=== PATIENT | female | born 1995 | race Caucasian/White ===

== ENCOUNTER 2016-05-10 21:02 | Emergency (ER) | payer OTHER ==
[~2016-05-10] VITALS: Ht 165.1 cm; Wt 56.0 kg
[2016-05-10 21:12] VITALS: BP 131/82; PULSE 91; RESP 18; TEMP 98.8; O2SAT 100
[2016-05-10] MEDS ORDERED: QUET200XR PO (21:18)
[2016-05-10] MEDS ORDERED: PROZ20CA11 PO (21:18)
--- NOTE | 2016-05-10 21:28 | PD ---
HPI Chief Complaint: Injury Time Seen by Provider: 21:27 Travel History International Travel<30 days: No Contact w/Intl Traveler<30days: No Traveled to known affect area: No History of Present Illness HPI 21-year-old female with a history of depression, anxiety, borderline personality disorder presents to the emergency department by EMS for evaluation of left knee injury. The patient states that she was playing indoor volleyball when she jumped to the left and her left knee somehow bent underneath her. Denies actually landing on the knee. States that she's had pain in the knee since this occurred, unable to bear weight due to the pain. She does admit to having LCL tears to bilateral knees but did not have surgery. She denies any numbness or tingling, weakness, fever, chills, nausea, vomiting. Denies , last menstrual period 1 week ago. No other complaints. PFSH Past Medical History Anxiety: Yes Depression: Yes Psychiatric: Yes (personality disorder) ?: Not Social History Tobacco Use: No Allergies-Medications (Allergen,Severity, Reaction): Uncoded Allergies: RED DYE IN COUGH SYRUP (Allergy, Intermediate, Hives, 05/10/16) Reported Meds & Prescriptions Reported Meds & Active Scripts Active Reported Prozac (Fluoxetine HCl) 20 Mg Cap 20 Mg PO DAILY Seroquel XR (Quetiapine Fumarate) 200 Mg Tab 200 Mg PO HS Review of Systems Except as stated in HPI: all other systems reviewed are Neg Physical Exam Narrative GENERAL: Well-nourished and well-developed pleasant female patient in no acute distress. SKIN: Warm and dry. HEAD: Normocephalic and atraumatic. EYES: No injection, drainage, or hyphema noted. PERRLA. EOMI. ENT: No nasal drainage noted. Oropharynx is clear. NECK: Supple and the trachea is midline. CARDIOVASCULAR: Regular rate and rhythm. RESPIRATORY: Breath sounds are equal bilaterally with no accessory muscle use, wheezing, rhonchi, or crackles. MUSCULOSKELETAL: Mild swelling to left knee with tenderness to palpation of lateral aspect of left knee. She is able to actively flex and extend the knee although range of motion is limited due to pain. Negative AP drawer sign, the joint is stable. No obvious deformities, swelling, cyanosis, or ecchymosis is present throughout the upper and lower extremities. Patient has full range of motion without any signs of neurovascular compromise. NEUROLOGICAL: Awake, alert, and oriented. Normal speech and gait. Cranial nerves are grossly intact. Data Data Last Documented VS Vital Signs Date Time Temp Pulse Resp B/P Pulse Ox O2 Delivery O2 Flow Rate FiO2 05/10/16 21:12 98.8 91 18 131/82 100 Orders Knee, Complete (4vws) (05/10/16 21:26) Acetamin-Hydrocod 325-5 Mg ([place] 5-325 (05/10/16 21:30) Splint Or Brace Apply/Monitor (05/10/16 22:34) [facility] Medical Decision Making Medical Screen Exam Complete: Yes Emergency Medical Condition: Yes Differential Diagnosis Knee sprain versus ligamentous injury versus meniscus tear versus fracture Narrative Course 21-year-old female presents to the emergency department by EMS for evaluation of left knee injury that occurred while playing volleyball. Patient is afebrile , vital signs are stable. Patient's left lower extremity is neurovascularly intact. X-ray imaging has been ordered and is pending. Patient is given Lortab 5325 milligrams orally here in the ED. X-ray of the left knee is negative for any acute abnormalities. Patient is placed in knee immobilizer. She has crutches at home that she can use for ambulation. Discussed supportive care. Advised follow-up with her PCP or an orthopedist if her symptoms persist. Patient verbalizes understanding and agreement with treatment plan. Diagnosis Primary Impression: Left knee sprain Qualified Code: S83.92XA - Sprain of left knee, unspecified ligament, initial encounter Referrals: Orthopedist Patient Instructions: General Instructions, Knee Sprain (ED) Departure Forms: School Release, Return to School Date: May 12, 2016 Tests/Procedures Additional Instructions: Knee immobilizer, crutches for ambulation. Elevate left knee. Apply ice for 20 minutes on, 20 minutes off. Take medications as prescribed with food and a full glass of water. Do not take Lortab with alcohol or while driving. Follow-up with an orthopedist if symptoms persist. Return to the ED for any acute worsening of symptoms. Med/Other Pt SpecificInfo: Prescription(s) given Scripts Naproxen 500 Mg Rne323 Mg PO BID 7 Days Ref 0 Prov:Ajay Neff MD 05/10/16 Hydrocodone-Acetaminophen (Lortab)5-325 Mg Tab1 Tab PO Q6H PRN (PAIN GREATER THAN 6) #15 TAB Ref 0 Prov:Ajay Neff MD 05/10/16 Disposition: 01 DISCHARGE HOME Condition: Stable Jerica Burt May 10, 2016 21:27
[2016-05-10] MEDS ORDERED: ACETAMINOPHEN/HYDROcodone 325 MG/5 MG TAB PO ONE (21:30)
--- NOTE | 2016-05-10 22:33 | RADRPT ---
EXAM DATE/TIME: 05/10/2016 22:09 [place] COMPARISON: No previous studies available for comparison. INDICATIONS : Left knee pain from fall. MEDICAL HISTORY : Prior tear of LCL SURGICAL HISTORY : None. ENCOUNTER: Initial ACUITY: 1 day PAIN SCORE: 8/10 LOCATION: medial knee. FINDINGS: Four view examination of the left knee demonstrates no evidence of fracture or dislocation. Bony min eralization is normal. The articular surfaces are intact. The suprapatellar soft tissues have a nor mal configuration. CONCLUSION: Unremarkable examination of the left knee. Joey Michelle Jr., MD on May 10, 2016 at 22:31 Board Certified Radiologist. This report was verified electronically.
[2016-05-10] MEDS ORDERED: NAPR500T PO (22:35)
[2016-05-10] MEDS ORDERED: HYDR-3533 PO (22:35)
== END 2016-05-10 23:04 | disposition home or self-care (01) ==
LOC: NEPB 21:02
DX: S83.92XA Sprain of unspecified site of left knee, initial encounter (principal); X58.XXXA Exposure to other specified factors, initial encounter; Y93.68 Activity, volleyball (beach) (court); Y99.8 Other external cause status
CPT/HCPCS: 73564; 99283; L1830

== ENCOUNTER → 2016-06-17 | Day surgery (SDC) | payer OTHER ==
[~2016-06-17] MED LIST: ACETAMINOPHEN/HYDROcodone 325 MG/5 MG TAB ONE; BACITRACIN IM FOR SOLN 50,000 UNIT VIAL ONE; BUPIVACAINE HCL PF 0.75% 30 ML VIAL ONE; HYDR-3533 PO; KETOROLAC TROMETHAMINE 30 MG/ML (IVP) VIAL IV PUSH ONE; LACTATED RINGER'S 1000 ML INJ 1,000 ML ONE; LIDOCAINE 1.5%/EPINEPHrine 1:200,000 PF SOLN 30 ML AMP ONE; MIDAZOLAM HCL 5 MG/5 ML VIAL ONE; NAPR500T PO; ONDANSETRON HCL 4 MG/2 ML VIAL IV PUSH ONE; PROPOFOL 200 MG/20 ML AMP IV ONE; PROZ20CA11 PO; QUET200XR PO; SODIUM CHLORIDE 0.9% 20 ML VIAL ONE; ceFAZolin 2 GM PREMIX 50 ML ONE; ceFAZolin INJ 1,000 MG VIAL ONE
--- NOTE | 2016-06-18 23:30 | MP ---
cc: CANDIDO MILLIGAN DATE OF SURGERY 06/17/2016 PREOPERATIVE DIAGNOSIS 1. Left knee anterior cruciate ligament tear. 2. Lateral meniscal tear POSTOPERATIVE DIAGNOSES 1. Left knee anterior cruciate ligament tear. 2. Lateral meniscal tear PROCEDURE 1. Left knee anterior cruciate ligament arthroscopic assisted allograft reconstruction. 2. Partial lateral meniscectomy SURGEON Dr. Julia Milligan RETAIL PRESENTATION SPECIALIST JOLEEN Duarte ANESTHESIA General with a femoral nerve block. REVIEW OF SYSTEMS Less than 50 mL. TOURNIQUET TIME Zero. JUSTIFICATION Patient is a 21-year-old female who sustained traumatic injury to her left knee resulting in a rupture of the anterior cruciate ligament. She complains of pain and instability symptoms. She was evaluated by the undersigned at the [facility]. Clinical exam as well as MRI confirmed the above-named findings. The patient was counseled as to risks, benefits and alternatives to the above named proposed surgical procedure. She did wish to proceed with surgery. PROCEDURE IN DETAIL A written consent WAS obtained. The patient identified by name, taken to the operating room and placed supine on the operating room table. General anesthesia was administered as well as 2 grams of IV Ancef. Left thigh carefully placed in well-padded leg wheat. Left lower extremity prepped and draped using isopropyl alcohol, Hibiclens solution and DuraPrep solution. After time-out was performed, a standard medial and lateral parapatellar arthroscopic portal was established. The patellofemoral joint revealed chondromalacia medial compartment was free of meniscal pathology and chondromalacia. The intercondylar notch revealed a rupture of the anterior cruciate ligament. The lateral compartment did reveal an unstable lateral meniscus tear. An arthroscopic biter followed by an arthroscopic shaver was placed into the lateral compartment for perform a partial lateral meniscectomy. The meniscal rim was probed and noted to be stable. No significant chondromalacia of the lateral compartment was noted. The shaver was used to perform a debridement of the torn anterior cruciate ligament stump. An arthroscopic bur was used to perform a notchplasty. An Arthrex tibial guide centered within the footprint of [place] ACL was placed. A guide pin was used to capture the 9.5-mm reamer bit. The tibial tunnel was retro cut 9.5 mm in diameter. Arthroscopic shaver was used to clean the soft tissue and bone and debris from within the knee joint. An Arthrex 6-mm [id number] medial portal guide was placed in the medial portal onto lateral femoral condyle. The knee was hyperflexed and a guide pin was drilled exiting the lateral femoral condyle. A low profile 9.5 mm cannulated reamer was drilled to a depth of 25 mm. The shaver was again used to clean soft tissue and bone debris from within the knee joint. On the back table, the posterior tibialis tendon allograft was thawed in antibiotic solution. Ricky Juarez, physician certified physician assistant certified, was instrumental in fashioning the graft ____ a diameter of 9.5 mm. #2 FiberWire whipstitch was placed in the proximal and distal portions of the graft and the graft was free tensioned on the back table. An Arthrex tightrope was placed in the mid portion of the graft. The sutures from the tightrope were then placed through the eyelet of a fiber link suture. The beef needle was used to shuttle the fiber link suture from the tibial tunnel exiting the femoral tunnel. This was then subsequently used to shuttle the sutures from the tightrope. The tightrope anchor was then pulled from the tibial tunnel exiting the lateral cortex of the femoral tunnel. There is excellent purchase and fixation. Subsequently, with the anchors seated on the lateral femoral condyle the graft was pulled and seated within the femoral tunnel. The graft was taken through full range of motion. No evidence of pistoning or impingement. With the leg held in near full extension, a guide wire was placed along the anterior portal of the graft. An Arthrex 9 x 28 mm bioabsorbable interference screw was used for fixation on the tibial side. An intraoperative Mimi exam was performed which was negative. The exiting graft in the tibial tunnel was removed with a 15 blade scalpel. The tibial incision was closed with 3-0 Vicryl suture and 3-0 nylon suture. The remaining incisions were closed with 3-0 nylon suture. Sterile dressing applied. The patient tolerated the procedure well. No intraoperative complications noted. Ricky Juarez, physician certified physician assistant certified, was present for entire procedure to include patient positioning and the procedure itself. The medical necessity of a physician certified physician assistant was indicated in this case due to the complexity of the procedure. He assisted with appropriate manipulation of the leg and also manipulation of the camera. He assisted with drilling of femoral and tibial tunnel and also implantation of the fixation devices and graft for purposes of reconstruction. MD ALYCE Stock/ /10:42 AM /11:09 PM
== END | disposition home or self-care (01) ==
LOC: ESDC 07:55
PROVIDERS: ATTEND Orthopaedic Surgery Sports Medicine
DX: S83.512A Sprain of anterior cruciate ligament of left knee, initial encounter (principal); S83.242A Other tear of medial meniscus, current injury, left knee, initial encounter
CPT/HCPCS: 01400; 01991; 29881; 29888; 64447; C1713; J0690; J1885; J2250; J2405; J3010; J7120